=== PATIENT | female | born 1990 | race Caucasian/White ===

== ENCOUNTER 2018-08-10 12:24 | Outpatient (CLI) | payer MEDICAID ==
[~2018-08-10] VITALS: Ht 160 cm; Wt 79.5 kg
[2018-08-10] MEDS ORDERED: PREN-93 PO (12:47)
[2018-08-10 12:48] VITALS: BP 110/64; PULSE 90; RESP 18
[2018-08-10 12:49] VITALS: Ht 160 cm; Wt 79.5 kg
--- NOTE | 2018-08-10 15:39 | TRIAGE ---
OB Triage Datetime Report Generated by CPN: 08/10/2018 15:38 Datetime: 08/10/2018 15:00 Stage of : OB Triage Maternal Assessment Level of Consciousness: Fully Conscious Labor Evaluation Frequency: 0 Monitor Mode: External Resting Tone [place]: Relaxed Heart Rate FHR Baseline Rate: 150 Monitor Mode: External US Variability: Moderate 6-25 bpm Accelerations: 15X15 Decelerations: None Category: Category I Pain Assessment Pain Scale: 0 Pain Goal: 3 Membrane Status: Intact Vaginal Bleeding: None Datetime: 08/10/2018 14:32 Vaginal Exam Dilatation (cms): 3.5 Effacement (%): 60 Station: -2 Exam By: KHEMANI Datetime: 08/10/2018 14:00 Stage of : OB Triage Maternal Assessment Level of Consciousness: Fully Conscious Labor Evaluation Frequency: 1UC/HR Monitor Mode: External Duration (sec)2399: 90 Quality: Mild Resting Tone [place]: Relaxed Heart Rate FHR Baseline Rate: 150 Monitor Mode: External US Variability: Moderate 6-25 bpm Accelerations: 15X15 Decelerations: None Category: Category I Pain Assessment Pain Scale: 0 Pain Goal: 3 Membrane Status: Intact Vaginal Bleeding: None Datetime: 08/10/2018 12:45 Assessment Type: Triage Maternal Assessment Level of Consciousness: Fully Conscious DTR's/Clonus: DTRs 2+; No Clonus Headache: Denies Blurred Vision: No Respiratory Effort: Unlabored; Regular Rhythm; Equal Expansion Breath Sounds, Left: Clear and Equal Breath Sounds, Right: Clear and Equal Nausea/Vomiting: Denies RUQ Epigastric Pain: Denies Lower Extremities Edema: None Degree: None Upper Extremities Edema: None Degree: None Facial Edema: None Fall Risk Assessment History of Falling: (0) No Secondary Diagnosis: (0) No Ambulatory Aid: (0) Bedrest/Nurse Assist IV Therapy: (0) No Gait: (0) Normal/Bedrest/Immobile Mental Status: (0) Oriented to Own Ability Fall Score: 0 Fall Risk Score Definition: No Risk: No action required Datetime: 08/10/2018 12:44 Time of Arrival: 08/10/2018 12:08 EGA: 38.4 Arrived By: Ambulatory Arrived From: Home Chief Complaint: pt. here C/O DFM Movement: Decreased Contractions: Denies/Absent Rupture of Membranes: Denies Vaginal Bleeding: None Vaginal Discharge: Denies Recent Sexual Intercouse: Denies Abdominal Trauma: Not Applicable Patient Complaints: Contractions; Cramping Time Provider Notified: 08/10/2018 14:40 Provider Notified: ALLEN Initial Plan: EFM/SVE/BPP Datetime: 08/10/2018 12:43 Monitor Mode: External Monitor Mode: External US
--- NOTE | 2018-08-10 18:48 | PN ---
Triage Information Date/Time Reason for visit: DFM Weeks of Gestation 38 weeks and 4 days /Para -0-1-1 Diabetes: none Hypertention: none Objective Vital Signs Date Temp Pulse Resp B/P (MAP) Pulse Ox O2 O2 Flow FiO2 Time Delivery Rate 08/10/18 99.2 90 18 110/64 Room Air 12:48 (79) Heart Rate: 140's Contractions: None Results/Medications Imaging Results breathing movement = 2/2 tone = 2/2 motion = 2/2 VANNESSA = 2/2 VANNESSA = 7.1 cm Single live intrauterine with cardiac activity of 154 bpm. position is cephalic. The placenta is anterior. IMPRESSION: 1. Single live intrauterine gestation. 2. Biophysical profile = 8/8. 3. VANNESSA = 7.1 cm. Disposition: Discharge Assessment/Plan 27 years old -0-1-1 with single intrauterine at 38 weeks and 4 days with a CEDRIC of 08/20/2018 complaining of decreased movement. She denies nausea, vomiting, shortness of breath, chest pain, headache, visual changes, vaginal bleeding or LOF. However during observation in triage she felt multiple movement. -FHR: No sign of metabolic acidosis- Category I -Contractions: None -SVE: Fingertip/thick/-3/ceph/intact -Ultrasound performed as noted above -Patient discussed with Dr. Robertson, primary OB who recommend discharge home -Follow-up in 3 days with NST and VANNESSA. I did recommend increase fluid intake. -Symptoms and sign of labor, preeclampsia, kick count discussed with patient, she voiced understanding. All of her questions answered. -Patient was discharged home in stable condition with the appropriate discharge instructions provided. I would like patient to have close follow-up with her primary physician or outpatient clinic in 1-2 days or return to triage for worsening symptoms or any other urgent concerns. TREY MARTINEZ August 10, 2018 18:48
== END 2018-08-10 15:40 | disposition home or self-care (01) ==
LOC: OBT 12:24 → L-D 12:25 → OBT 15:40
PROVIDERS: ATTEND Obstetrics & Gynecology
DX: O36.8130 Decreased fetal movements, third trimester, not applicable or unspecified (principal); Z3A.38 38 weeks gestation of pregnancy
CPT/HCPCS: 76818; Z7500; G0463

== ENCOUNTER 2018-08-13 17:04 | Inpatient (IN) | payer MEDICAID ==
[~2018-08-13] VITALS: Ht 160 cm; Wt 79.9 kg
[~2018-08-13 17:04] MED LIST: PREN-93 PO
[2018-08-13 17:23] VITALS: Ht 160 cm; Wt 79.9 kg
[2018-08-13 17:24] VITALS: BP 110/55; PULSE 83; RESP 18
[2018-08-13] MEDS ORDERED: METHYLERGONOVINE 0.2 MG INJ IM PRN (18:00)
[2018-08-13] MEDS ORDERED: OXYTOCIN 30 UNITS/LR 500 ML IV SCH ×2 (18:00)
[2018-08-13] MEDS ORDERED: OXYTOCIN 30 UNITS/LR 500 ML IV PRN (18:00)
[2018-08-13] MEDS ORDERED: CARBOPROST 250 MCG INJ IM PRN (18:00)
[2018-08-13] MEDS ORDERED: MISOPROSTOL 200 MCG TAB PR PRN (18:00)
[2018-08-13] MEDS ORDERED: BUTORPHANOL 2 MG INJ IV PRN ×2 (18:00)
[2018-08-13] MEDS ORDERED: LIDOCAINE 1% (MPF) 30 ML INJ INJ PRN (18:00)
[2018-08-13] MEDS: LACTATED RINGER'S 1,000 ML IV SCH (19:05)
[2018-08-14] MEDS: LACTATED RINGER'S 1,000 ML IV SCH (02:36)
--- NOTE | 2018-08-14 07:05 | HP ---
Date/Time of Note Date/Time of Note DATE: 08/14/18 TIME: 07:04 OB - History Hx of Present Free Text/Dictation in active labor Care: Good Care Ultrasounds: Normal mid trimester US Obstetrical Complications: None Medical Complications: None Past Family/Social History * Past Medical, Surgical, Family and Obstetric Histories reviewed from chart. OB Admission Exam Vital Signs Vital Signs Vital Signs Date Temp Pulse Resp B/P (MAP) Pulse Ox O2 O2 Flow FiO2 Time Delivery Rate 08/13/18 98.3 83 18 110/55 17:24 (73) Physical Exam HEENT: WNL Heart: Rhythm Normal Lungs: Clear, Equal Abdomen: WNL Extremities: Normal Reflexes: Normal Cervical Dilatation: 10cm Effacement: 100% Station: +3 Amniotic Fluid: Clear Heart Rate: 130's Accelerations: Accelerations Present Decelerations: No Decelerations Varibility: Moderate Contractions on Admission: 6-10 Minutes Apart Intensity: Moderate Last 72 hours Lab Results CBC & BMP 08/13/18 19:10 OB Assessment/Plan Reason for admission: active labor Plan: Expectant Management AMANDA VILLA MD August 14, 2018 07:05
--- NOTE | 2018-08-14 07:06 | LDN ---
Date/Time of Note Date/Time of Note DATE: 08/14/18 TIME: 07:05 Delivery Summary Weeks of Gestation 39 Placenta Delivered: Spontaneously Meconium: none Episiotomy: No Perineal laceration: 1 Estimated blood loss: 300 Sponge & Needle done & correct: Yes All needle counts correct: Yes Any foreign bodies felt in the: No AMANDA VILLA MD August 14, 2018 07:06
[2018-08-14] MEDS ORDERED: IBUPROFEN 600 MG TAB PO ONE (07:30)
[2018-08-14] MEDS ORDERED: OXYTOCIN 30 UNITS/LR 500 ML IV SCH (09:05)
[2018-08-14] MEDS ORDERED: LACTATED RINGER'S 1,000 ML IV* SCH (09:05)
[2018-08-14 09:30] VITALS: BP 109/66; PULSE 64; RESP 17
[2018-08-14] MEDS ORDERED: ACETAMINOPHEN 325 MG TAB PO PRN (09:30)
[2018-08-14] MEDS ORDERED: MAGNESIUM HYDROXIDE 30ML CUP PO PRN (09:30)
[2018-08-14] MEDS ORDERED: OXYTOCIN 30 UNITS/LR 500 ML IV PRN (09:30)
[2018-08-14] MEDS ORDERED: WITCH HAZEL/GLYCERIN PAD PR PRN (09:30)
[2018-08-14] MEDS ORDERED: LANOLIN HPA 1 PKT TOP PRN (09:30)
[2018-08-14] MEDS ORDERED: DIPHENHYDRAMINE 25 MG CAP PO PRN (09:30)
[2018-08-14] MEDS ORDERED: CARBOPROST 250 MCG INJ IM PRN (09:30)
[2018-08-14] MEDS ORDERED: MISOPROSTOL 200 MCG TAB PR PRN (09:30)
[2018-08-14] MEDS ORDERED: ZOLPIDEM 5 MG TAB PO PRN (09:30)
[2018-08-14] MEDS ORDERED: METHYLERGONOVINE 0.2 MG INJ IM PRN (09:30)
[2018-08-14] MEDS ORDERED: BENZOCAINE 20% 56 ML SPRAY TOP PRN (09:30)
[2018-08-14] MEDS: HYDROCODONE/APAP (5/325) TAB PO PRN ×2 (11:09→20:37)
[2018-08-14 12:00] VITALS: BP 111/60; PULSE 62; RESP 18
[2018-08-14] MEDS: IBUPROFEN 800 MG TAB PO SCH ×3 (12:00→23:57)
[2018-08-14 15:14] VITALS: BP 110/65; PULSE 71; RESP 19
[2018-08-14 20:00] VITALS: BP 99/57; PULSE 79; RESP 16
[2018-08-15 04:00] VITALS: BP 101/65; PULSE 72; RESP 16
[2018-08-15] MEDS: HYDROCODONE/APAP (5/325) TAB PO PRN ×2 (04:11→10:21)
[2018-08-15] MEDS: IBUPROFEN 800 MG TAB PO SCH ×4 (06:14→23:32)
[2018-08-15 08:39] VITALS: BP 120/69; PULSE 67; RESP 18
[2018-08-15 15:20] VITALS: BP 89/57; PULSE 82; RESP 17
[2018-08-15 20:11] VITALS: BP 100/59; PULSE 80; RESP 20
[2018-08-15] MEDS: SENNA/DOCUSATE NA (8.6MG/50MG) TAB PO PRN (21:20)
[2018-08-16 04:47] VITALS: BP 127/64; PULSE 82; RESP 18
[2018-08-16] MEDS: IBUPROFEN 800 MG TAB PO SCH ×2 (06:16→11:38)
[2018-08-16 08:15] VITALS: BP 110/55; PULSE 77; RESP 19
[2018-08-16] MEDS ORDERED: MEASLES,MUMPS,RUBELLA VACCINE INJ SC* ONE (09:00)
[2018-08-16] MEDS ORDERED: VARICELLA VACCINE LIVE/PF 1,350 UNIT/0.5 ML ML SC* ONE (09:00)
[2018-08-16] MEDS ORDERED: DIPHTH/TET/ACEL PERTUSS (ADULT) 0.5 ML VIAL IM* ONE (09:00)
[2018-08-16] MEDS: SENNA/DOCUSATE NA (8.6MG/50MG) TAB PO PRN (09:06)
--- NOTE | 2018-08-16 10:23 | DS ---
Date/Time of Note Date/Time of Note DATE: 08/16/18 TIME: 10:22 Discharge Summary Admission/Discharge Info Admit Date/Time August 13, 2018 at 17:40 Discharge Date/Time Discharge Diagnosis term Patient Condition: Stable Hospital Course unremarkable Home Meds Reported Medications Vit No.124/Iron/FA ( Vitamin Tablet) 1 Each Tablet, 1 EACH PO DAILY, TAB 08/10/18 Primary Care Provider Care Physician No Primary AMANDA VILLA MD August 16, 2018 10:23
--- NOTE | 2018-08-17 15:26 | DELSUM ---
Delivery Summary A-C Datetime Report Generated by CPN: 08/17/2018 15:26 DELIVERY PERSONNEL [employer]: Tyler, Bev MATERNAL INFORMATION Delivery Anesthesia: None Medications in Delivery: 30 UNIT PITOCIN Delivery QBL (ml): 300 Placenta Cultured: No Maternal Complications: None LABOR SUMMARY EDC: 08/20/2018 00:00 No. Babies in Womb: 1 Attempted: No Labor Anesthesia: None LABOR INFORMATION Reason for Induction: Not Applicable Onset of Labor: 08/13/2018 18:00 Complete Dilatation: 08/14/2018 06:37 Oxytocin: N/A Group B Beta Strep: Negative Antibiotics # of Doses: 0 Steroids Given: None Reason Steroids Not Administered: Not Applicable MEMBRANES Membranes Rupture Method: Artificial Rupture of Membranes: 08/14/2018 06:53 Length of Rupture (hr): 0.03 Amniotic Fluid Color: Light Meconium Amniotic Fluid Amount: Moderate STAGES OF LABOR Stage 1 hr: 12 Stage 1 min: 37 Stage 2 hr: 0 Stage 2 min: 18 Stage 3 hr: 0 Stage 3 min: 5 Total Time in Labor hr: 13 Total Time in Labor min: 0 VAGINAL DELIVERY Episiotomy: None Laceration Extension: First Degree Laceration Type: Perineal Laceration Repair: Yes Initial Vag Sponge Count: 10 Final Vag Sponge Count: 10 Initial Vag Sharps Count: 1 Final Vag Sharps Count: 2 Sponge Count Correct: Yes; Vaginal Sweep Performed Sharps Count Correct: Yes BABY A INFORMATION Delivery Date/Time: 08/14/2018 06:55 Method of Delivery: Vaginal Born in Route : No : N/A Forceps: N/A Vacuum Extraction: N/A Shoulder Dystocia : N/A SHOULDER DYSTOCIA BABY A Delivery Date/Time: 08/14/2018 06:55 PRESENTATION/POSITION BABY A Presentation: Cephalic Cephalic Presentation: Vertex Vertex Position: Left Occipital Anterior Breech Presentation: N/A PLACENTA INFORMATION BABY A Placenta Delivery Time : 08/14/2018 07:00 Placenta Method of Delivery: Spontaneous Placenta Status: Delivered SCORES BABY A Heart Rate 1 min: >100 bpm Resp Effort 1 min: Good Cry Reflex Irritability 1 min: Cough/Sneeze/Pulls Away Muscle Tone 1 min: Active Motion Color 1 min: Blue/Pale Resuscitation Effort 1 min: Tactile Stimulation SCORE 1 MIN: 8 Heart Rate 5 min: >100 bpm Resp Effort 5 min: Good Cry Reflex Irritability 5 min: Cough/Sneeze/Pulls Away Muscle Tone 5 min: Active Motion Color 5 min: Body [place], Extremit Blue Resuscitation Effort 5 min: Tactile Stimulation SCORE 5 MIN: 9 INFANT INFORMATION BABY A Gestational Age at Delivery: 39.1 Gestational Status: Full Term- 39- 40.6 Weeks Infant Outcome : Liveborn Condition : Stable Sex: Female IDENTIFICATION/MEDS BABY A ID Band Number: [id number] ID Band Location: Right Leg; Left Arm Sensor Applied: Yes Sensor Number: [id number] Sensor Location : Cord Clamp Vitamin K Given : Not Given Erythromycin Given: Not Given WEIGHT/LENGTH BABY A Birthweight (gm): 3120 Weight (lb): 6 Infant Weight (oz): 14 Infant Length (in): 18.25 Length (cm): 46.36 CORD INFORMATION BABY A No. Cord Vessels: 3 Nuchal Cord : N/A Cord Blood Taken: Yes Suction: Mouth; Nose
== END 2018-08-16 15:25 | disposition home or self-care (01) | DRG 807 ==
LOC: L-D 17:04 → OBT 17:04 → L-D 17:40 → PP1 08-14 08:58
PROVIDERS: ADMIT Obstetrics & Gynecology; ATTEND Obstetrics & Gynecology
PROC: 10E0XZZ Delivery of Products of Conception, External Approach (ICD-10-PCS; principal; 2018-08-14)
PROC: 10907ZC Drainage of Amniotic Fluid, Therapeutic from Products of Conception, Via Natural or Artificial Opening (ICD-10-PCS; 2018-08-14)
DX: O70.0 First degree perineal laceration during delivery (principal); Z37.0 Single live birth; Z3A.39 39 weeks gestation of pregnancy
CPT/HCPCS: 76815; 76818; 85025; 85610; 85730; 86592; 86850; 86900; 86901; 87340; 90715; 90716; G0463; J2590; J7120